=== PATIENT | female | born 1975 | race Caucasian/White ===

== ENCOUNTER 2017-11-09 13:26 | Emergency (ER) | payer BC ==
[~2017-11-09] VITALS: Ht 177.8 cm; Wt 71.9 kg
[~2017-11-09 13:26] MED LIST: FIORTAB4 PO; OMEP20TA PO; PHEN12.5 PO; PREN0.01 PO; SUCRPOW XX; VALA500 PO; [UNRECOGNIZED DRUG - OTHER]
[2017-11-09 13:29] VITALS: BP 154/74; PULSE 78; RESP 16; TEMP 98.1; O2SAT 98
[2017-11-09 13:47] LABS: BILIRUBIN, URINE NEG (NEG); BLOOD, URINE NEG (NEG); GLUCOSE,URINE NEG (NEG); KETONE, URINE 15 mg/dL (NEG); NITRITE,URINE NEG (NEG); URINE COLOR YELLOW (YELLW/STRAW); URINE LEUKOCYTE ESTERASE TRACE (NEG)
[2017-11-09] MEDS ORDERED: SODIUM CHLOR 0.9% 1000 ML INJ 1,000 ML IV SCH (13:54)
[2017-11-09] MEDS ORDERED: SODIUM CHLORIDE 0.9% FLUSH 10 ML FLUSH IV FLUSH PRN (14:00)
[2017-11-09] MEDS ORDERED: ONDANSETRON HCL 4 MG/2 ML VIAL IVP ONE (14:00)
[2017-11-09] MEDS ORDERED: FAMOTIDINE 20 MG/2 ML VIAL IV PUSH ONE (14:00)
[2017-11-09 14:02] LABS: AMORPHOUS SEDIMENT, URINE FEW; BACTERIA, URINE FEW /hpf; RBC, URINE 0-3 /hpf (0-3); SQUAMOUS EPITHELIAL CELL URINE > 8 /hpf (0-5); WBC, URINE 0-2 /hpf (0-5)
--- NOTE | 2017-11-09 14:04 | PD ---
HPI Chief Complaint: Flank/Kidney Pain Time Seen by Provider: 13:49 Travel History International Travel<30 days: No Contact w/Intl Traveler<30days: No Traveled to known affect area: No History of Present Illness HPI 42-year-old female complains of right upper quadrant abdominal pain, right flank pain, nausea vomiting diarrhea. Patient states that the symptoms started 3 days ago. Patient states that the symptoms got better yesterday and got worse again today. Patient denies any headache. Patient denies any chest pain or shortness of breath. Patient states that the pain and cramping pain is sharp pain localized on the right upper quadrant and right flank area. Patient denies any pain radiation. Patient denies any dysuria frequency. Patient denies any vaginal discharge or bleeding. Patient denies any chance of being . Patient has history of gastroparesis. 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 Patient was on Reglan, Carafate and omeprazole in the past. Patient has not taken this medication recently. PFSH Past Medical History Diminished Hearing: No Headaches: Yes (MIGRAINES) ?: Not Social History Alcohol Use: No Tobacco Use: No Substance Use: No Allergies-Medications (Allergen,Severity, Reaction): Coded Allergies: propoxyphene (Unverified Allergy, Severe, ITCHING INTERNALLY TO EXTERNALLY , 11/09/17) acetaminophen (Unverified Allergy, Intermediate, ITCHING, 11/09/17) erythromycin base (Unverified Allergy, Intermediate, RASH/VOMITS, 11/09/17) hydrocodone (Unverified Allergy, Intermediate, ITCHING, 11/09/17) Reported Meds & Prescriptions Reported Meds & Active Scripts Active Phenergan (Promethazine HCl) 12.5 Mg Tab 12.5 Mg PO Q6 PRN FOR NAUSEA Fioricet (Acetaminophen/Butalbital/Caffeine) Tab 1 Tab PO Q6 PRN FOR HEADACHE Phenergan (Promethazine HCl) 12.5 Mg Tab 12.5 Mg PO Q6HPRN FOR NAUSEA Fioricet (Acetaminophen/Butalbital/Caffeine) Tab 1 Tab PO Q6HPRN FOR HEADACHE Reported Omeprazole 20 Mg Tab 20 Mg PO DAILY Sucralfate Pow 1 XX Vit ( Plus) (Prenat Multivit/Barber/Iron/Folic Ac) Tab 1 Tab PO DAILY Valtrex (Valacyclovir HCl) 500 Mg Tab 0 PO UNKNOWN DOSE [Chlomid] Review of Systems General / Constitutional: No: Fever Eyes: No: Visual changes HENT: No: Headaches Cardiovascular: No: Chest Pain or Discomfort Respiratory: No: Shortness of Breath Gastrointestinal: Positive: Nausea, Vomiting, Diarrhea, Abdominal Pain Genitourinary: No: Dysuria Musculoskeletal: No: Pain Skin: No Rash Neurologic: No: Weakness Psychiatric: No: Depression Endocrine: No: Polydipsia Hematologic/Lymphatic: No: Easy Bruising Physical Exam Narrative GENERAL: Well-nourished, well-developed patient. SKIN: Focused skin assessment warm/dry. HEAD: Normocephalic. EYES: No scleral icterus. No injection or drainage. NECK: Supple, trachea midline. No JVD or lymphadenopathy. CARDIOVASCULAR: Regular rate and rhythm without murmurs, gallops, or rubs. RESPIRATORY: Breath sounds equal bilaterally. No accessory muscle use. GASTROINTESTINAL: Abdomen soft, nondistended. Patient has moderate tenderness on palpation right upper quadrant of the abdomen. No rebound tenderness. No mass. MUSCULOSKELETAL: No cyanosis, or edema. BACK: Nontender without obvious deformity. No CVA tenderness. Neurologic exam normal. Data Data Last Documented VS Vital Signs Date Time Temp Pulse Resp B/P (MAP) Pulse Ox O2 Delivery O2 Flow Rate FiO2 11/09/17 14:08 98 11/09/17 13:29 98.1 78 16 154/74 (100) Orders Orders Urinalysis - C+S If Indicated (11/09/17 13:27) Ed Urine Pregnancytest Poc (11/09/17 13:27) Complete Blood Count With Diff (11/09/17 13:54) Comprehensive Metabolic Panel (11/09/17 13:54) Lipase (11/09/17 13:54) Prothrombin Time / Inr (Pt) (11/09/17 13:54) Act Partial Throm Time (Ptt) (11/09/17 13:54) Ct Abd/Pel W Iv Contrast(Rout) (11/09/17 13:54) Iv Access Insert/Monitor (11/09/17 13:54) Ecg Monitoring (11/09/17 13:54) Oximetry (11/09/17 13:54) Ondansetron Inj (Zofran Inj) (11/09/17 14:00) Sodium Chlor 0.9% 1000 Ml Inj (Ns 1000 M (11/09/17 13:54) Sodium Chloride 0.9% Flush (Ns Flush) (11/09/17 14:00) Famotidine Inj (Pepcid Inj) (11/09/17 14:00) Iohexol 350 Inj (Omnipaque 350 Inj) (11/09/17 14:52) Labs Laboratory Tests Test 11/09/17 13:31 11/09/17 14:04 Urine Collection Type VOIDED Urine Color YELLOW Urine Turbidity CLOUDY Urine pH 6.0 Urine Specific [place] GREATER/EQUAL 1.030 Urine Protein TRACE mg/dL Urine Glucose (UA) NEG mg/dL Urine Ketones 15 mg/dL Urine Occult Blood NEG Urine Nitrite NEG Urine Bilirubin NEG Urine Urobilinogen 0.2 MG/DL Urine Leukocyte Esterase TRACE Urine RBC 0-3 /hpf Urine WBC 0-2 /hpf Urine Squamous Epithelial Cells > 8 /hpf Urine Amorphous Sediment FEW Urine Bacteria FEW /hpf Microscopic Urinalysis Comment CULT NOT INDICATED White Blood Count 5.4 TH/MM3 Red Blood Count 4.50 MIL/MM3 Hemoglobin 13.0 GM/DL Hematocrit 38.9 % Mean Corpuscular Volume 86.4 FL Mean Corpuscular Hemoglobin 28.8 PG Mean Corpuscular Hemoglobin Concent 33.4 % Red Cell Distribution Width 12.1 % Platelet Count 246 TH/MM3 Mean Platelet Volume 7.4 FL Neutrophils (%) (Auto) 65.1 % Lymphocytes (%) (Auto) 24.6 % Monocytes (%) (Auto) 8.8 % Eosinophils (%) (Auto) 1.3 % Basophils (%) (Auto) 0.2 % Neutrophils # (Auto) 3.5 TH/MM3 Lymphocytes # (Auto) 1.3 TH/MM3 Monocytes # (Auto) 0.5 TH/MM3 Eosinophils # (Auto) 0.1 TH/MM3 Basophils # (Auto) 0.0 TH/MM3 CBC Comment DIFF FINAL Differential Comment Prothrombin Time 10.0 SEC Prothromb Time International Ratio 1.0 RATIO Activated Partial Thromboplast Time 24.7 SEC Blood Urea Nitrogen 11 MG/DL Creatinine 0.74 MG/DL Random Glucose 90 MG/DL Total Protein 8.0 GM/DL Albumin 3.6 GM/DL Calcium Level 8.8 MG/DL Alkaline Phosphatase 89 U/L Aspartate Amino Transf (AST/SGOT) 14 U/L Alanine Aminotransferase (ALT/SGPT) 15 U/L Total Bilirubin 0.5 MG/DL Sodium Level 137 MEQ/L Potassium Level 3.7 MEQ/L Chloride Level 106 MEQ/L Carbon Dioxide Level 24.0 MEQ/L Anion Gap 7 MEQ/L Estimat Glomerular Filtration Rate 86 ML/MIN Lipase 208 U/L [facility] Medical Decision Making Medical Screen Exam Complete: Yes Emergency Medical Condition: Yes Interpretation(s) 1453 PM. CBC within normal limits. CMP within normal limits. UA negative. [address] scan abdomen and pelvis shows no acute pathology. Minimal fluid right pelvis area. Differential Diagnosis Differential diagnosis including acute cholecystitis, gastritis, PUD, pancreatitis, colitis, UTI, pyelonephritis, nephrolithiasis. Narrative Course 42-year-old female with right lower quadrant abdominal pain, right flank pain with nausea vomiting diarrhea. Normal saline solution 1 25 cc an hour. Zofran 4 mg IV. Pepcid 20 mg IV. Diagnosis Primary Impression: Abdominal pain Qualified Codes: R10.11 - Right upper quadrant pain Additional Impression: Gastroenteritis Patient Instructions: General Instructions Additional Instructions: 42-year-old female complains of take medication as directed. Follow-up with personal physician and design and sales consultant. Return if worse. Med/Other Pt SpecificInfo: Prescription(s) given Scripts Ondansetron Odt (Zofran Odt) 4 Mg Tab 4 MG SL Q6HR Y for Nausea/Vomiting, #12 TAB 0 Refills Prov: Kevan Dejesus MD 11/09/17 Metoclopramide (Reglan) 10 Mg Tab 10 MG PO TIDAC for Pain, #30 TAB 0 Refills Prov: Kevan Dejesus MD 11/09/17 Pantoprazole (Protonix) 40 Mg Tab 40 MG PO DAILY for Reflux, #30 TAB 0 Refills Prov: Kevan Dejesus MD 11/09/17 Disposition: 01 DISCHARGE HOME Condition: Stable Kevan Dejesus MD Nov 09, 2017 14:04
[2017-11-09 14:08] VITALS: O2SAT 98
[2017-11-09 14:13] LABS: AUTOMATED NEUTROPHIL # 3.5 TH/MM3 (1.8-7.7); BASOPHIL % 0.2 % (0.0-2.0); EOSINOPHIL # 0.1 TH/MM3 (0-0.4); EOSINOPHIL % 1.3 % (0.0-4.0); HEMATOCRIT 38.9 % (35.0-46.0); LYMPH % 24.6 % (9.0-44.0); LYMPHOCYTE # 1.3 TH/MM3 (1.0-4.8); MEAN CELL VOLUME 86.4 FL (80.0-100.0); MEAN CORPUSCULAR HEMOGLOBIN 28.8 PG (27.0-34.0); MEAN CORPUSCULAR HGB CONC 33.4 % (32.0-36.0); MEAN PLATELET VOLUME 7.4 FL (7.0-11.0); MONO % 8.8 % (0.0-8.0); MONOCYTE # 0.5 TH/MM3 (0-0.9); NEUT % 65.1 % (16.0-70.0); PLATELET COUNT 246 TH/MM3 (150-450); RED CELL DISTRIBUTION WIDTH 12.1 % (11.6-17.2); WHITE BLOOD COUNT 5.4 TH/MM3 (4.0-11.0)
[2017-11-09 14:30] LABS: CHLORIDE 106 MEQ/L (98-107); SODIUM (NA) 137 MEQ/L (136-145)
[2017-11-09 14:34] LABS: CALCIUM 8.8 MG/DL (8.5-10.1)
[2017-11-09 14:35] LABS: ALBUMIN 3.6 GM/DL (3.4-5.0); BLOOD UREA NITROGEN 11 MG/DL (7-18); GLUCOSE,RANDOM 90 MG/DL (74-106)
[2017-11-09 14:37] LABS: ALT (GPT) 15 U/L (10-53)
[2017-11-09 14:38] LABS: AST (GOT) 14 U/L (15-37); CREATININE 0.74 MG/DL (0.50-1.00); GLOMERULAR FILTRATION RATE 86 ML/MIN (>89)
[2017-11-09 14:39] LABS: TOTAL BILIRUBIN ADULT 0.5 MG/DL (0.2-1.0)
[2017-11-09 14:40] LABS: ALKALINE PHOSPHATASE 89 U/L (45-117)
[2017-11-09] MEDS ORDERED: IOHEXOL 350 MG/ML 10 ML VIAL (for RAD DIAG) IVCONTRAST ONE (14:52)
--- NOTE | 2017-11-09 15:11 | RADRPT ---
EXAM DATE/TIME: 11/09/2017 14:41 [facility] COMPARISON: No previous studies available for comparison. INDICATIONS : Right sided abdominal pain, nausea, vomiting, diarrhea IV CONTRAST: 75 cc Omnipaque 350 (iohexol) IV ORAL CONTRAST: No oral contrast ingested. RADIATION DOSE: 8.94 CTDIvol (mGy) MEDICAL HISTORY : Migraines, Gastroparesis SURGICAL HISTORY : Knee ENCOUNTER: Initial ACUITY: 3 days PAIN SCALE: 8/10 LOCATION: Right flank TECHNIQUE: Volumetric scanning of the abdomen and pelvis was performed. Using automated exposure control and ad justment of the mA and/or kV according to patient size, radiation dose was kept as low as reasonably achievable to obtain optimal diagnostic quality images. DICOM format image data is available electro nically for review and comparison. FINDINGS: The limited portion of the lung base visualized is clear. The appearance of the liver, spleen, pancreas, adrenal glands and kidneys is within normal limits. There is no free intraperitoneal air. No free intraperitoneal fluid is identified. There is no retrop eritoneal lymphadenopathy. The aorta is normal in caliber. The visualized loops of small and large bowel in the upper abdomen are unremarkable. Imaging through the pelvis demonstrates a minimal amount of free fluid the lower pelvis on the right side. The loops of small large bowel within the pelvis are unremarkable. No iliac or inguinal adenopa thy is present. The visualized bony structures demonstrate degenerative changes but are otherwise intact. CONCLUSION: There is a minimal amount of free fluid within the pelvis predominantly within the lower right pelvis . There are no findings to indicate bowel obstruction. No free intraperitoneal air is seen. Blade Wray MD on November 09, 2017 at 15:06 Board Certified Radiologist. This report was verified electronically.
[2017-11-09] MEDS ORDERED: ZOFR4TAB3 SL (15:23)
[2017-11-09] MEDS ORDERED: PROT40TA PO (15:23)
[2017-11-09] MEDS ORDERED: REGL10TA5 PO (15:23)
[2017-11-09 15:37] VITALS: BP 122/72
== END 2017-11-09 15:38 | disposition home or self-care (01) ==
LOC: PHED 13:26
DX: R10.11 Right upper quadrant pain (principal); K52.9 Noninfective gastroenteritis and colitis, unspecified; R11.2 Nausea with vomiting, unspecified
CPT/HCPCS: 74177; 80053; 81001; 83690; 84703; 85025; 85610; 85730; 96361; 96374; 96375; 99285; J2405; J7030; Q9967